=== PATIENT | male | born 1955 | race Caucasian/White ===

== ENCOUNTER 2018-05-17 10:28 | Inpatient (IN) | payer OTHER ==
[~2018-05-17] VITALS: Ht 170.2 cm; Wt 65.8 kg
--- NOTE | 2018-05-17 11:55 | NUR ---
PT TO ROOM FROM LOBBY
[2018-05-17] MEDS ORDERED: SODIUM CHLORIDE FLUSH 10ML SYR IVF ONE (12:00)
[2018-05-17] MEDS ORDERED: ASPIRIN 81 MG TABLET CHEW PO ONE (12:00)
--- NOTE | 2018-05-17 12:00 | NUR ---
Pt to ER for 3 wks of exertional dyspnea & cough. Denies CP, 2+ pitting edema B ankles. EKG done in triage. Cardiac, NIBP & SPO2 monitors IP. Sinus tach w/ occasional PVC's. Call light within reach, NAD at this time.
[2018-05-17] MEDS ORDERED: NIAC10002 PO (12:04)
[2018-05-17 12:22] LABS: BASOPHILS # (AUTO) 0.03 x10^3/uL (0-0.1); BASOPHILS % (AUTO) 1 % (0-1); EOSINOPHILS # (AUTO) 0.06 x10^3/uL (0-0.4); EOSINOPHILS % (AUTO) 1 % (1-7); LYMPHOCYTES # (AUTO) 1.14 x10^3/uL (1-3.4); LYMPHOCYTES % (AUTO) 20 % (22-44); MD NO; MEAN CORPUSCULAR HEMOGLOBIN 31.7 pg (27.5-34.5); MEAN CORPUSCULAR HGB CONC 33.8 g/dL (33.2-36.2); MEAN CORPUSCULAR VOLUME 93.6 fL (81-97); MEAN PLATELET VOLUME 7.7 fL (7.4-10.4); MONOCYTES # (AUTO) 0.82 x10^3/uL (0.2-0.8); MONOCYTES % (AUTO) 15 % (2-9); NEUTROPHILS # (AUTO) 3.53 x10^3/uL (1.8-6.8); NEUTROPHILS % (AUTO) 63 % (42-75); PLATELET COUNT 284 x10^3/uL (130-400); RED BLOOD COUNT 4.34 x10^6/uL (4.38-5.82); RED CELL DISTRIBUTION WIDTH 12.5 % (9.4-14.8)
[2018-05-17 12:28] LABS: INTERNATIONAL NORMALIZED RATIO 1.28 (0.93-1.1); PROTHROMBIN TIME 13.4 Seconds (9.6-11.5)
[2018-05-17 12:31] LABS: ALANINE AMINOTRANSFERASE 54 U/L (12-78); ALBUMIN 3.2 g/dL (3.4-5.0); ANION GAP 10 mmol/L (5-15); CALCIUM 9.3 mg/dL (8.5-10.1); CHLORIDE 105 mmol/L (98-107)
[2018-05-17 12:36] LABS: ALKALINE PHOSPHATASE 110 U/L (45-117); BILIRUBIN,TOTAL 1.1 mg/dL (0.2-1.0); CREATININE 0.73 mg/dL (0.7-1.3); TOTAL PROTEIN 7.3 g/dL (6.4-8.2)
[2018-05-17 12:41] LABS: TROPONIN I 0.188 ng/mL (0.000-0.045)
[2018-05-17] MEDS ORDERED: ASPIRIN 325 MG TABLET ONE (12:41)
--- NOTE | 2018-05-17 12:45 | NUR ---
Pt to CT via [facility].
--- NOTE | 2018-05-17 13:29 | NUR ---
Pt remains in radiology dept getting CT of chest & LE US.
[2018-05-17] MEDS ORDERED: OMNIPAQUE 350 MG/ML, 100ML BOTTLE ONE (13:31)
[2018-05-17] MEDS ORDERED: METOPROLOL 1 MG/ML, 5ML IVPush STA (13:44)
[2018-05-17] MEDS ORDERED: HEPARIN 25,000 UNITS/500ML PMX 0 ML ONE (13:54)
[2018-05-17] MEDS ORDERED: HEPARIN 5,000 UNITS/ML, 1ML ONE (13:54)
[2018-05-17] MEDS ORDERED: CEFTRIAXONE PMX 1GM/50ML 50 ML ONE (13:54)
[2018-05-17] MEDS ORDERED: METOPROLOL 1 MG/ML, 5ML ONE (13:57)
[2018-05-17] MEDS ORDERED: BISACODYL 10 MG SUPP PR PRN (14:00)
[2018-05-17] MEDS ORDERED: HEPARIN 25,000 UNITS/500ML PMX 500 ML IV PRN (14:00)
[2018-05-17] MEDS ORDERED: HEPARIN 5,000 UNITS/ML, 1ML IV PRN (14:00)
[2018-05-17] MEDS ORDERED: POLYETHYLENE GLYCOL 17 GM PACKET PO PRN (14:00)
[2018-05-17] MEDS ORDERED: CEFTRIAXONE PMX 1GM/50ML 50 ML IVPB ONE (14:00)
[2018-05-17] MEDS ORDERED: ACETAMINOPHEN 325 MG TABLET PO PRN (14:00)
[2018-05-17] MEDS ORDERED: ONDANSETRON 2MG/ML, 2ML IVPush PRN (14:00)
[2018-05-17] MEDS ORDERED: HEPARIN 5,000 UNITS/ML, 1ML IV ONE (14:00)
[2018-05-17] MEDS ORDERED: Enoxaparin 1 mg/kg protocol SQ SCH (14:00)
[2018-05-17] MEDS ORDERED: LABETALOL 5MG/ML, 20ML IVPush PRN (14:00)
[2018-05-17] MEDS ORDERED: DOCUSATE 100 MG CAPSULE PO PRN (14:00)
--- NOTE | 2018-05-17 14:04 | NUR ---
RN clarified orders with SATNHOSH Azul. She states to hold heparin and rocephin. BP = 91/49 and HR 120. metoprolol held. Latha aware.
--- NOTE | 2018-05-17 14:45 | NUR ---
Report to IAIN Sosa.
[2018-05-17] MEDS ORDERED: ENOXAPARIN 60 MG/0.6 ML ONE (14:53)
--- NOTE | 2018-05-17 14:56 | NUR ---
Confirmed w/ hospitalist Latha Proctor to hold rocephin & heparin. Lovenox SQ given as per emar. Pt placed on cardiac rehabilitation program director for transfer upstairs.
[2018-05-17 15:00] VITALS: BP 95/65
[2018-05-17 15:00] LABS: THYROID STIMULATING HORMONE < 0.005 mIU/L (0.358-3.740)
[2018-05-17] MEDS ORDERED: ENOXAPARIN 60 MG/0.6 ML SQ SCH (15:30)
[2018-05-17 17:50] VITALS: BP 100/59
[2018-05-17] MEDS: FUROSEMIDE 20 MG/2 ML IV SCH (18:01)
[2018-05-17 18:46] VITALS: BP 97/61
[2018-05-17] MEDS: SODIUM CHLORIDE FLUSH 10ML SYR IVF SCH (20:24)
[2018-05-17] MEDS: ATORVASTATIN 40 MG TABLET PO SCH (20:24)
[2018-05-18 01:50] LABS: TROPONIN I 0.195 ng/mL (0.000-0.045)
[2018-05-18 03:32] VITALS: BP 92/61
[2018-05-18 05:11] LABS: BASOPHILS # (AUTO) 0.01 x10^3/uL (0-0.1); BASOPHILS % (AUTO) 0 % (0-1); EOSINOPHILS # (AUTO) 0.09 x10^3/uL (0-0.4); EOSINOPHILS % (AUTO) 2 % (1-7); LYMPHOCYTES # (AUTO) 1.23 x10^3/uL (1-3.4); LYMPHOCYTES % (AUTO) 28 % (22-44); MD NO; MEAN CORPUSCULAR HEMOGLOBIN 31.2 pg (27.5-34.5); MEAN CORPUSCULAR HGB CONC 33.1 g/dL (33.2-36.2); MEAN CORPUSCULAR VOLUME 94.5 fL (81-97); MEAN PLATELET VOLUME 7.6 fL (7.4-10.4); MONOCYTES # (AUTO) 0.82 x10^3/uL (0.2-0.8); MONOCYTES % (AUTO) 18 % (2-9); NEUTROPHILS # (AUTO) 2.32 x10^3/uL (1.8-6.8); NEUTROPHILS % (AUTO) 52 % (42-75); PLATELET COUNT 235 x10^3/uL (130-400); RED CELL DISTRIBUTION WIDTH 12.5 % (9.4-14.8)
[2018-05-18 05:14] LABS: CHLORIDE 108 mmol/L (98-107)
[2018-05-18 05:23] LABS: ALANINE AMINOTRANSFERASE 54 U/L (12-78); ALBUMIN 2.5 g/dL (3.4-5.0); ALKALINE PHOSPHATASE 93 U/L (45-117); ANION GAP 10 mmol/L (5-15); BILIRUBIN,TOTAL 0.7 mg/dL (0.2-1.0); CALCIUM 8.6 mg/dL (8.5-10.1); CHOLESTEROL, TOTAL 200 mg/dL (140-239); CREATININE 0.79 mg/dL (0.7-1.3); HDL CHOL % 10 % (26-37); HDL CHOLESTEROL (DIRECT) 20 mg/dL (40-60); LDL CHOLESTEROL,CALCULATED 166 mg/dL (54-169); LDL/HDL RATIO 8.3 (0.5-3.0); TRIGLYCERIDES 71 mg/dL (50-200); TROPONIN I 0.169 ng/mL (0.000-0.045); VLDL CHOLESTEROL 14 mg/dL (0-25)
[2018-05-18 07:10] VITALS: BP 92/57
[2018-05-18] MEDS: FUROSEMIDE 20 MG/2 ML IV SCH ×2 (07:43→17:17)
[2018-05-18] MEDS: SODIUM CHLORIDE FLUSH 10ML SYR IVF SCH ×2 (07:43→20:49)
[2018-05-18] MEDS ORDERED: REGADENOSON 0.4 MG/5 ML SYRINGE ONE (07:51)
[2018-05-18] MEDS ORDERED: POTASSIUM CHLORIDE 20 MEQ TAB.ER.PRT PO SCH (08:00)
[2018-05-18] MEDS ORDERED: CARVEDILOL 3.125 MG TABLET PO SCH (09:00)
[2018-05-18] MEDS ORDERED: HEPARIN 5,000 UNITS/ML, 1ML IV ONE (09:00)
[2018-05-18] MEDS: HEPARIN 25,000 UNITS/500ML PMX 500 ML IV PRN (09:38)
[2018-05-18 11:21] VITALS: BP 89/42
[2018-05-18 13:18] VITALS: BP 86/52
[2018-05-18] MEDS: NIACIN 500 MG TABLET.ER PO SCH (15:10)
[2018-05-18] MEDS: HEPARIN 5,000 UNITS/ML, 1ML IV PRN ×2 (17:17→23:59)
[2018-05-18 17:18] VITALS: BP 88/59
[2018-05-18] MEDS: CARVEDILOL 3.125 MG TABLET PO SCH (17:18)
[2018-05-18] MEDS: ATORVASTATIN 40 MG TABLET PO SCH (20:49)
[2018-05-18 21:39] VITALS: BP 95/62
[2018-05-19 00:10] VITALS: BP 88/54
[2018-05-19 04:44] VITALS: BP 94/63
[2018-05-19] MEDS: CARVEDILOL 3.125 MG TABLET PO SCH ×2 (04:45→17:31)
[2018-05-19 06:50] LABS: BASOPHILS # (AUTO) 0.02 x10^3/uL (0-0.1); BASOPHILS % (AUTO) 0 % (0-1); EOSINOPHILS # (AUTO) 0.12 x10^3/uL (0-0.4); EOSINOPHILS % (AUTO) 2 % (1-7); LYMPHOCYTES # (AUTO) 1.49 x10^3/uL (1-3.4); LYMPHOCYTES % (AUTO) 28 % (22-44); MD NO; MEAN CORPUSCULAR HEMOGLOBIN 31.7 pg (27.5-34.5); MEAN CORPUSCULAR HGB CONC 33.1 g/dL (33.2-36.2); MEAN CORPUSCULAR VOLUME 95.8 fL (81-97); MEAN PLATELET VOLUME 7.6 fL (7.4-10.4); MONOCYTES # (AUTO) 0.79 x10^3/uL (0.2-0.8); MONOCYTES % (AUTO) 15 % (2-9); NEUTROPHILS # (AUTO) 2.89 x10^3/uL (1.8-6.8); NEUTROPHILS % (AUTO) 55 % (42-75); PLATELET COUNT 245 x10^3/uL (130-400); RED BLOOD COUNT 4.04 x10^6/uL (4.38-5.82); RED CELL DISTRIBUTION WIDTH 12.7 % (9.4-14.8)
[2018-05-19 07:00] LABS: ANION GAP 8 mmol/L (5-15); CALCIUM 8.6 mg/dL (8.5-10.1); CHLORIDE 112 mmol/L (98-107)
[2018-05-19 07:01] LABS: CREATININE 0.72 mg/dL (0.7-1.3)
[2018-05-19 07:06] VITALS: BP 92/56
[2018-05-19] MEDS ORDERED: POTASSIUM CHLORIDE 20 MEQ TAB.ER.PRT PO ONE (07:30)
[2018-05-19] MEDS: POTASSIUM CHLORIDE 20 MEQ TAB.ER.PRT PO SCH ×2 (08:30→20:54)
[2018-05-19] MEDS: FUROSEMIDE 40 MG TABLET PO SCH (08:30)
[2018-05-19] MEDS: NIACIN 500 MG TABLET.ER PO SCH (08:30)
[2018-05-19] MEDS: SODIUM CHLORIDE FLUSH 10ML SYR IVF SCH ×2 (08:30→20:55)
[2018-05-19] MEDS: HEPARIN 5,000 UNITS/ML, 1ML IV PRN ×2 (08:31→22:08)
[2018-05-19 12:28] VITALS: BP 102/71
[2018-05-19] MEDS: HEPARIN 25,000 UNITS/500ML PMX 500 ML IV PRN (13:15)
[2018-05-19] MEDS ORDERED: MIDAZOLAM 1 MG/ML, 2ML ONE (13:16)
[2018-05-19] MEDS ORDERED: FENTANYL PF 100 MCG/2ML ONE (13:16)
[2018-05-19] MEDS ORDERED: LIDOCAINE 1%, 20ML ONE (13:16)
[2018-05-19] MEDS ORDERED: VERAPAMIL 2.5 MG/ML, 2ML ONE (13:16)
[2018-05-19] MEDS ORDERED: HEPARIN 1,000 UNITS/ML, 10ML ONE (13:17)
[2018-05-19 17:31] VITALS: BP 89/57
[2018-05-19 19:40] VITALS: BP 99/68
[2018-05-19] MEDS: ATORVASTATIN 40 MG TABLET PO SCH (20:54)
[2018-05-20 01:32] VITALS: BP 96/58
[2018-05-20 04:36] LABS: BASOPHILS # (AUTO) 0.02 x10^3/uL (0-0.1); BASOPHILS % (AUTO) 0 % (0-1); EOSINOPHILS # (AUTO) 0.31 x10^3/uL (0-0.4); EOSINOPHILS % (AUTO) 5 % (1-7); LYMPHOCYTES # (AUTO) 1.74 x10^3/uL (1-3.4); LYMPHOCYTES % (AUTO) 26 % (22-44); MD NO; MEAN CORPUSCULAR HEMOGLOBIN 32.2 pg (27.5-34.5); MEAN CORPUSCULAR HGB CONC 33.6 g/dL (33.2-36.2); MEAN CORPUSCULAR VOLUME 95.7 fL (81-97); MEAN PLATELET VOLUME 7.7 fL (7.4-10.4); MONOCYTES % (AUTO) 11 % (2-9); NEUTROPHILS # (AUTO) 3.85 x10^3/uL (1.8-6.8); NEUTROPHILS % (AUTO) 58 % (42-75); PLATELET COUNT 230 x10^3/uL (130-400); RED BLOOD COUNT 4.03 x10^6/uL (4.38-5.82); RED CELL DISTRIBUTION WIDTH 12.9 % (9.4-14.8)
[2018-05-20 04:45] LABS: ANION GAP 7 mmol/L (5-15); CALCIUM 8.6 mg/dL (8.5-10.1); CHLORIDE 112 mmol/L (98-107); CREATININE 0.82 mg/dL (0.7-1.3)
[2018-05-20] MEDS: HEPARIN 5,000 UNITS/ML, 1ML IV PRN (04:56)
[2018-05-20 04:59] VITALS: BP 86/55
[2018-05-20] MEDS: CARVEDILOL 3.125 MG TABLET PO SCH ×2 (05:01→17:48)
[2018-05-20 06:54] VITALS: BP 94/53
[2018-05-20] MEDS ORDERED: ENALAPRIL 5MG TABLET ONE (08:49)
[2018-05-20] MEDS: POTASSIUM CHLORIDE 20 MEQ TAB.ER.PRT PO SCH ×2 (08:59→20:41)
[2018-05-20] MEDS: ASPIRIN 81 MG TABLET CHEW PO SCH (09:00)
[2018-05-20] MEDS: SODIUM CHLORIDE FLUSH 10ML SYR IVF SCH ×2 (09:00→20:41)
[2018-05-20] MEDS: NIACIN 500 MG TABLET.ER PO SCH (09:00)
[2018-05-20] MEDS: ENALAPRIL 2.5MG TABLET PO SCH (09:00)
[2018-05-20] MEDS: FUROSEMIDE 40 MG TABLET PO SCH (09:00)
[2018-05-20] MEDS: APIXABAN 5 MG TABLET PO SCH ×2 (09:00→20:41)
[2018-05-20 12:31] VITALS: BP 93/63
[2018-05-20 19:22] VITALS: BP 91/55
[2018-05-20] MEDS: ATORVASTATIN 40 MG TABLET PO SCH (20:41)
[2018-05-21 02:54] VITALS: BP 91/57
[2018-05-21 05:21] LABS: ANION GAP 8 mmol/L (5-15); CALCIUM 8.7 mg/dL (8.5-10.1); CHLORIDE 110 mmol/L (98-107); CREATININE 0.66 mg/dL (0.7-1.3)
[2018-05-21 05:33] LABS: BASOPHILS # (AUTO) 0.01 x10^3/uL (0-0.1); BASOPHILS % (AUTO) 0 % (0-1); EOSINOPHILS # (AUTO) 0.21 x10^3/uL (0-0.4); EOSINOPHILS % (AUTO) 3 % (1-7); LYMPHOCYTES # (AUTO) 1.62 x10^3/uL (1-3.4); LYMPHOCYTES % (AUTO) 24 % (22-44); MD NO; MEAN CORPUSCULAR HEMOGLOBIN 31.5 pg (27.5-34.5); MEAN CORPUSCULAR VOLUME 95.4 fL (81-97); MEAN PLATELET VOLUME 7.8 fL (7.4-10.4); MONOCYTES # (AUTO) 0.87 x10^3/uL (0.2-0.8); MONOCYTES % (AUTO) 13 % (2-9); NEUTROPHILS # (AUTO) 4.09 x10^3/uL (1.8-6.8); NEUTROPHILS % (AUTO) 60 % (42-75); PLATELET COUNT 223 x10^3/uL (130-400); RED BLOOD COUNT 3.69 x10^6/uL (4.38-5.82); RED CELL DISTRIBUTION WIDTH 12.5 % (9.4-14.8)
[2018-05-21 05:41] VITALS: BP 85/44
[2018-05-21] MEDS: CARVEDILOL 3.125 MG TABLET PO SCH ×2 (05:42→19:42)
[2018-05-21 07:11] VITALS: BP 94/57
[2018-05-21] MEDS ORDERED: ENALAPRIL 5MG TABLET ONE (08:23)
[2018-05-21] MEDS: ASPIRIN 81 MG TABLET CHEW PO SCH (08:25)
[2018-05-21] MEDS: FUROSEMIDE 40 MG TABLET PO SCH (08:25)
[2018-05-21] MEDS: POTASSIUM CHLORIDE 20 MEQ TAB.ER.PRT PO SCH ×2 (08:25→20:59)
[2018-05-21] MEDS: APIXABAN 5 MG TABLET PO SCH ×2 (08:25→20:59)
[2018-05-21] MEDS: NIACIN 500 MG TABLET.ER PO SCH (08:26)
[2018-05-21] MEDS: SODIUM CHLORIDE FLUSH 10ML SYR IVF SCH ×2 (08:27→20:59)
[2018-05-21] MEDS: ENALAPRIL 2.5MG TABLET PO SCH (09:00)
[2018-05-21 12:34] VITALS: BP 99/64
[2018-05-21 18:33] VITALS: BP 86/48
[2018-05-21 19:37] VITALS: BP 97/60
[2018-05-21] MEDS: ATORVASTATIN 40 MG TABLET PO SCH (20:59)
[2018-05-22 02:22] VITALS: BP_SYST 84; BP_SYST 87; BP_DIAS 44; BP_DIAS 46
[2018-05-22 05:30] LABS: BASOPHILS # (AUTO) 0.01 x10^3/uL (0-0.1); BASOPHILS % (AUTO) 0 % (0-1); EOSINOPHILS # (AUTO) 0.22 x10^3/uL (0-0.4); EOSINOPHILS % (AUTO) 3 % (1-7); LYMPHOCYTES # (AUTO) 1.32 x10^3/uL (1-3.4); LYMPHOCYTES % (AUTO) 20 % (22-44); MD NO; MEAN CORPUSCULAR HEMOGLOBIN 31.6 pg (27.5-34.5); MEAN CORPUSCULAR HGB CONC 33.2 g/dL (33.2-36.2); MEAN CORPUSCULAR VOLUME 95.1 fL (81-97); MONOCYTES # (AUTO) 0.81 x10^3/uL (0.2-0.8); MONOCYTES % (AUTO) 12 % (2-9); NEUTROPHILS # (AUTO) 4.17 x10^3/uL (1.8-6.8); NEUTROPHILS % (AUTO) 64 % (42-75); PLATELET COUNT 216 x10^3/uL (130-400); RED BLOOD COUNT 3.85 x10^6/uL (4.38-5.82); RED CELL DISTRIBUTION WIDTH 12.7 % (9.4-14.8)
[2018-05-22 05:45] LABS: ALBUMIN 2.2 g/dL (3.4-5.0); ANION GAP 7 mmol/L (5-15); CALCIUM 8.4 mg/dL (8.5-10.1); CHLORIDE 109 mmol/L (98-107)
[2018-05-22 05:47] LABS: CREATININE 0.59 mg/dL (0.7-1.3)
[2018-05-22] MEDS: APIXABAN 5 MG TABLET PO SCH (09:13)
[2018-05-22] MEDS: FUROSEMIDE 40 MG TABLET PO SCH (09:14)
[2018-05-22] MEDS: CARVEDILOL 3.125 MG TABLET PO SCH (09:14)
[2018-05-22] MEDS: ASPIRIN 81 MG TABLET CHEW PO SCH (09:14)
[2018-05-22] MEDS: POTASSIUM CHLORIDE 20 MEQ TAB.ER.PRT PO SCH (09:14)
[2018-05-22] MEDS: NIACIN 500 MG TABLET.ER PO SCH (09:21)
[2018-05-22 09:22] VITALS: BP 93/60
== END 2018-05-22 14:50 | disposition left against medical advice (07) | DRG 286 ==
LOC: ED 12:20 → EDIP 13:24 → 5SO 15:02
PROVIDERS: ADMIT Internal Medicine; ATTEND Internal Medicine
PROC: 4A023N7 Measurement of Cardiac Sampling and Pressure, Left Heart, Percutaneous Approach (ICD-10-PCS; principal; 2018-05-19)
PROC: B2111ZZ Fluoroscopy of Multiple Coronary Arteries using Low Osmolar Contrast (ICD-10-PCS; 2018-05-19)
DX: I25.10 Atherosclerotic heart disease of native coronary artery without angina pectoris (principal); I50.41 Acute combined systolic (congestive) and diastolic (congestive) heart failure; E44.1 Mild protein-calorie malnutrition; Z53.21 Procedure and treatment not carried out due to patient leaving prior to being seen by health care provider; I95.9 Hypotension, unspecified; E78.49 Other hyperlipidemia; I34.0 Nonrheumatic mitral (valve) insufficiency; I35.0 Nonrheumatic aortic (valve) stenosis; Z82.49 Family history of ischemic heart disease and other diseases of the circulatory system; Z95.1 Presence of aortocoronary bypass graft; Z68.22 Body mass index [BMI] 22.0-22.9, adult; Z87.891 Personal history of nicotine dependence; I25.82 Chronic total occlusion of coronary artery
CPT/HCPCS: 36415; 71275; 78452; 78466; 80048; 80053; 80061; 82040; 83036; 83605; 83735; 83880; 84100; 84145; 84443; 84484; 85025; 85520; 85610; 87040; 87205; 93005; 93458; 93970; 96372; 99156; 99291; C1769; C1894; C8929; G0378; J1644; J1650; J2250; J2785; J3010; J3490; Q9957; Q9967; A9502; A9505; C9898; J1940

== ENCOUNTER 2018-07-05 17:03 | Inpatient (IN) | payer MEDICAID ==
[~2018-07-05] VITALS: Ht 170.2 cm; Wt 65.0 kg
[~2018-07-05 17:03] MED LIST: NIAC10002 PO
--- NOTE | 2018-07-05 17:15 | NUR ---
PT BIB AMBULANCE TRANSFER FROM [place] FOR FATIGUE AND WEAKNESS X1 WEEK. DIAGNOSED WITH CHF IN MAY. CURRENTLY HAS BILATERAL PLEURAL EFFUSIONS. CABG X3 JUN 01, 2018 AT [facility]. CONNECTED TO MONITORS. VSS. NO NEEDS AT THIS TIME. CALL LIGHT WITHIN REACH. AWAITING MD ASSESSMENT.
--- NOTE | 2018-07-05 17:35 | NUR ---
TASK RN: URINAL GIVEN TO PATIENT.
[2018-07-05 18:25] LABS: BASOPHILS # (AUTO) 0.02 x10^3/uL (0-0.1); BASOPHILS % (AUTO) 0 % (0-1); EOSINOPHILS # (AUTO) 0.57 x10^3/uL (0-0.4); EOSINOPHILS % (AUTO) 10 % (1-7); LYMPHOCYTES # (AUTO) 0.92 x10^3/uL (1-3.4); LYMPHOCYTES % (AUTO) 16 % (22-44); MD NO; MEAN CORPUSCULAR HEMOGLOBIN 30.5 pg (27.5-34.5); MEAN CORPUSCULAR HGB CONC 32.7 g/dL (33.2-36.2); MEAN CORPUSCULAR VOLUME 93.4 fL (81-97); MEAN PLATELET VOLUME 6.5 fL (7.4-10.4); MONOCYTES # (AUTO) 0.69 x10^3/uL (0.2-0.8); MONOCYTES % (AUTO) 12 % (2-9); NEUTROPHILS # (AUTO) 3.73 x10^3/uL (1.8-6.8); NEUTROPHILS % (AUTO) 63 % (42-75); PLATELET COUNT 320 x10^3/uL (130-400); RED CELL DISTRIBUTION WIDTH 16.2 % (9.4-14.8)
[2018-07-05 18:30] LABS: ALBUMIN 2.4 g/dL (3.4-5.0); ANION GAP 8 mmol/L (5-15); CALCIUM 8.6 mg/dL (8.5-10.1); CHLORIDE 104 mmol/L (98-107); CREATININE 0.79 mg/dL (0.7-1.3)
[2018-07-05 18:33] LABS: TROPONIN I 0.112 ng/mL (0.000-0.045)
[2018-07-05] MEDS ORDERED: ATOR20TA37 PO (19:29)
[2018-07-05] MEDS ORDERED: METH10TA6 PO (19:29)
[2018-07-05] MEDS ORDERED: RIVA20TA PO (19:29)
[2018-07-05] MEDS ORDERED: ASPI-515 PO (19:29)
--- NOTE | 2018-07-05 19:29 | NUR ---
SHELBI MENDEZ OK'D PT TO TAKE OWN XARELTO.
[2018-07-05] MEDS ORDERED: POLYETHYLENE GLYCOL 17 GM PACKET PO PRN (20:00)
[2018-07-05] MEDS ORDERED: ONDANSETRON ODT 4 MG PO PRN (20:00)
[2018-07-05] MEDS ORDERED: NITROGLYCERIN 0.4 MG BOTTLE (25 TABS) SL PRN (20:00)
[2018-07-05] MEDS ORDERED: BISACODYL 10 MG SUPP PR PRN (20:00)
[2018-07-05] MEDS ORDERED: ACETAMINOPHEN 325 MG TABLET PO PRN (20:00)
[2018-07-05 20:24] LABS: FREE T4 (FREE THYROXINE) 1.24 ng/dL (0.76-1.46); THYROID STIMULATING HORMONE 0.039 mIU/L (0.358-3.740)
[2018-07-05] MEDS: SODIUM CHLORIDE FLUSH 10ML SYR IVF SCH (20:52)
[2018-07-05] MEDS ORDERED: ATORVASTATIN 20 MG TABLET PO SCH (21:00)
[2018-07-05] MEDS: POTASSIUM CHLORIDE 20 MEQ TAB.ER.PRT PO SCH (21:00)
[2018-07-06 01:19] LABS: TROPONIN I 0.107 ng/mL (0.000-0.045)
[2018-07-06 02:05] VITALS: BP 98/62
[2018-07-06 06:30] LABS: BASOPHILS # (AUTO) 0.01 x10^3/uL (0-0.1); BASOPHILS % (AUTO) 0 % (0-1); EOSINOPHILS # (AUTO) 0.56 x10^3/uL (0-0.4); EOSINOPHILS % (AUTO) 8 % (1-7); LYMPHOCYTES # (AUTO) 0.94 x10^3/uL (1-3.4); LYMPHOCYTES % (AUTO) 13 % (22-44); MD NO; MEAN CORPUSCULAR HEMOGLOBIN 30.5 pg (27.5-34.5); MEAN CORPUSCULAR HGB CONC 32.9 g/dL (33.2-36.2); MEAN CORPUSCULAR VOLUME 92.7 fL (81-97); MEAN PLATELET VOLUME 6.5 fL (7.4-10.4); MONOCYTES # (AUTO) 0.79 x10^3/uL (0.2-0.8); MONOCYTES % (AUTO) 11 % (2-9); NEUTROPHILS # (AUTO) 4.69 x10^3/uL (1.8-6.8); NEUTROPHILS % (AUTO) 67 % (42-75); PLATELET COUNT 279 x10^3/uL (130-400); RED BLOOD COUNT 3.61 x10^6/uL (4.38-5.82); RED CELL DISTRIBUTION WIDTH 16.5 % (9.4-14.8)
[2018-07-06 06:38] LABS: ALANINE AMINOTRANSFERASE 46 U/L (12-78); ALBUMIN 2.2 g/dL (3.4-5.0); ANION GAP 5 mmol/L (5-15); CALCIUM 8.3 mg/dL (8.5-10.1); CHLORIDE 107 mmol/L (98-107); CREATININE 0.87 mg/dL (0.7-1.3)
[2018-07-06 06:43] LABS: ALKALINE PHOSPHATASE 150 U/L (45-117); BILIRUBIN,TOTAL 0.8 mg/dL (0.2-1.0); TOTAL PROTEIN 6.9 g/dL (6.4-8.2); TROPONIN I 0.095 ng/mL (0.000-0.045)
[2018-07-06] MEDS ORDERED: FUROSEMIDE 40 MG/4 ML IV SCH (07:30)
[2018-07-06 07:34] VITALS: BP 100/64
[2018-07-06] MEDS ORDERED: SENNA/DOCUSATE TABLET PO SCH (09:00)
[2018-07-06] MEDS ORDERED: RIVAROXABAN 20 MG TABLET PO SCH (09:00)
[2018-07-06] MEDS ORDERED: ASPIRIN 81 MG TABLET EC PO SCH (09:00)
[2018-07-06] MEDS: POTASSIUM CHLORIDE 20 MEQ TAB.ER.PRT PO SCH (09:11)
[2018-07-06] MEDS: SODIUM CHLORIDE FLUSH 10ML SYR IVF SCH (09:12)
[2018-07-06] MEDS ORDERED: METO25TA35 PO (11:13)
[2018-07-06 13:11] VITALS: BP 104/69
== END 2018-07-06 15:09 | disposition home or self-care (01) | DRG 280 ==
LOC: ED 17:21 → EDIP 18:22 → 5SO 20:48 → DCLOUNGE 07-06 14:45
PROVIDERS: ADMIT Internal Medicine; ATTEND Internal Medicine
DX: I21.4 Non-ST elevation (NSTEMI) myocardial infarction (principal); E43 Unspecified severe protein-calorie malnutrition; J98.11 Atelectasis; J90 Pleural effusion, not elsewhere classified; I50.9 Heart failure, unspecified; D64.9 Anemia, unspecified; E78.5 Hyperlipidemia, unspecified; E87.6 Hypokalemia; I25.10 Atherosclerotic heart disease of native coronary artery without angina pectoris; Z82.49 Family history of ischemic heart disease and other diseases of the circulatory system; Z95.1 Presence of aortocoronary bypass graft; Z95.2 Presence of prosthetic heart valve; Z68.22 Body mass index [BMI] 22.0-22.9, adult; E83.51 Hypocalcemia
CPT/HCPCS: 36415; 71045; 80048; 80053; 82040; 83735; 84439; 84443; 84481; 84484; 85025; 99285; G0378; J1940